=== PATIENT | female | born 1960 ===

== ENCOUNTER 2023-08-24 11:58 | Outpatient (CLI) | payer OTHER, SELFPAY ==
[2023-08-24 12:59] LABS: Basophils Percent Auto 0.2 % (0.2-1.2); Eosinophils Absolute Auto 0.2 K/mm3 (0-0.3); Eosinophils Percent Auto 5.7 % (0-4.4); Hematocrit 41.8 % (37.0-47.0); Hemoglobin 13.4 g/dL (12.0-15.0); Lymphocytes Percent Auto 44.8 % (18.3-44.2); Mean Corpuscular HGB Conc 32.1 g/dl (32-36); Mean Corpuscular Hemoglobin 29.5 pg (26-34); Mean Corpuscular Volume 91.9 fl (80-100); Mean Platelet Volume 10.1 fl (7.4-10.4); Monocytes Absolute Auto 0.4 K/mm3 (0.1-0.6); Monocytes Percent Auto 9.4 % (2.6-8.5); Neutrophils Absolute Auto 1.7 K/mm3 (1.3-6.7); Neutrophils Percent Auto 39.9 % (45.5-73.1); Platelet Count Result 222 k/mm3 (150-375); Red Blood Count 4.55 M/mm3 (4.2-5.4); Red Cell Distribution Width 12.7 % (11.5-14.5); White Blood Count 4.2 K/mm3 (4.5-10.0)
[2023-08-24 13:13] LABS: Alanine Aminotransferase 34 U/L (6-35); Alkaline Phosphatase 96 U/L (38-126); Anion Gap 6 mmol/L (8-16); Aspartate Amino Transferase 43 U/L (14-36); Bilirubin,Total 0.7 mg/dL (0.2-1.3); Blood Urea Nitrogen 11 mg/dL (7-17); CRP < 0.5 mg/dL (<1.0); Carbon Dioxide 29 mmol/L (22-30); Chloride 103 mmol/L (98-107); Estimated Glomerular Filt Rate > 60; Glucose 94 mg/dL (65-110); Potassium 4.3 mmol/L (3.4-5.0); Sodium 138 mmol/L (137-145)
[2023-08-24 13:18] LABS: Appearance Urine Clear (Clear); Bacteria Urine 1+ /hpf; Bilirubin Urine Negative (Negative); Blood Urine Negative (Negative); Color Urine Yellow (Yellow); Glucose Urine UA Negative (Negative); Ketones Urine Negative (Negative); Leukocyte Esterase Ur 3+ LEU/UL (Negative); Nitrate Urine Negative (Negative); Non Pathogenic Casts 0-2; Protein Urine Negative (Negative); RBC Urine 0-2 /hpf (0-2); Specific Grav Ur 1.018 (1.001-1.035); Squamous Epithelial Cell Urine Few /hpf (Few); Urobilinogen Urine 0.2 mg/dL (<2.0); WBC Urine 21-50 /hpf; pH Urine 5.5 (5.0-9.0)
[2023-08-24 13:21] LABS: Complement C3 122 mg/dL (88-165); Rheumatoid Factor 93.9 IU/ML (<12)
[2023-08-24 13:50] LABS: Add Urine Microscopic? YES
[2023-08-24 13:54] LABS: Hepatitis B Surface Antigen Negative (Negative)
[2023-08-24 14:14] LABS: Hepatitis B Surface Anti Res Positive; Hepatitis C Virus Antibody Negative (Negative)
[2023-08-24 14:31] LABS: Erythrocyte Sedimentation Rate 33 mm/hr (0-20)
[2023-08-26 21:42] LABS: Anti Cyclic Citrullinated Pept >250 Units (<20)
[2023-08-27 08:52] LABS: SM Antibody <1.0; SM/RNP Antibody <1.0
[2023-08-27 08:52] LABS: SS-A <1.0; SS-B <1.0
[2023-08-28 22:49] LABS: Lupus dRVVT Screen 35 sec (<=45); PTT-LA Screen 34 sec (<=40)
[2023-08-29 14:32] LABS: Anti Cardio Antibody IgM <2.0 MPL-U/mL (<20.0); Anti Cardiolipin Antibody IgA <2.0 APL-U/mL (<20.0); Anti Cardiolipin Antibody IgG <2.0 GPL-U/mL (<20.0)
== END 2023-08-24 11:59 | disposition home or self-care (01) ==
LOC: ANHLAB 12:00
PROVIDERS: PCP Nurse Practitioner Family; Visit Provider Internal Medicine
DX: R70.0 Elevated erythrocyte sedimentation rate (principal); M05.79 Rheumatoid arthritis with rheumatoid factor of multiple sites without organ or systems involvement; M15.9 Polyosteoarthritis, unspecified; Z71.89 Other specified counseling; Z79.899 Other long term (current) drug therapy
CPT/HCPCS: 36415; 80053; 81001; 85025; 85613; 85652; 85730; 86038; 86140; 86146; 86147; 86160; 86200; 86225; 86235; 86430; 86706; 86803; 87086; 87088; 87340

== ENCOUNTER 2024-01-13 13:33 | Outpatient (CLI) | payer OTHER, SELFPAY ==
[2024-01-13 14:10] LABS: Appearance Urine Clear (Clear); Bacteria Urine None Seen /hpf; Bilirubin Urine Negative (Negative); Blood Urine Negative (Negative); Color Urine Yellow (Yellow); Glucose Urine UA Negative (Negative); Ketones Urine Negative (Negative); Leukocyte Esterase Ur 3+ LEU/UL (Negative); Nitrate Urine Negative (Negative); Non Pathogenic Casts 0-2; Protein Urine Negative (Negative); RBC Urine 0-2 /hpf (0-2); Squamous Epithelial Cell Urine Few /hpf (Few)
[2024-01-13 14:12] LABS: Add Urine Microscopic? YES
[2024-01-13 14:27] LABS: Hematocrit 39.5 % (37.0-47.0); Hemoglobin 12.7 g/dL (12.0-15.0); Mean Corpuscular HGB Conc 32.2 g/dl (32-36); Mean Corpuscular Hemoglobin 28.9 pg (26-34); Mean Platelet Volume 10.4 fl (7.4-10.4); Platelet Count Result 203 k/mm3 (150-375); Red Blood Count 4.39 M/mm3 (4.2-5.4); Red Cell Distribution Width 12.7 % (11.5-14.5); White Blood Count 5.7 K/mm3 (4.5-10.0)
[2024-01-13 14:40] LABS: Alanine Aminotransferase 27 U/L (6-35); Albumin Level 3.7 g/dL (3.5-5.1); Alkaline Phosphatase 98 U/L (38-126); Anion Gap 4 mmol/L (8-16); Aspartate Amino Transferase 40 U/L (14-36); Bilirubin,Total 0.7 mg/dL (0.2-1.3); Blood Urea Nitrogen 13 mg/dL (7-17); CRP 1.5 mg/dL (<1.0); Calcium 8.9 mg/dL (8.4-10.2); Carbon Dioxide 30 mmol/L (22-30); Chloride 104 mmol/L (98-107); Estimated Glomerular Filt Rate > 60; Glucose 106 mg/dL (65-110); Potassium 3.8 mmol/L (3.4-5.0); Sodium 138 mmol/L (137-145)
[2024-01-13 15:36] LABS: Erythrocyte Sedimentation Rate 43 mm/hr (0-20)
== END 2024-01-13 13:34 | disposition home or self-care (01) ==
LOC: ANHLAB 13:38
PROVIDERS: Visit Provider Internal Medicine
DX: M19.90 Unspecified osteoarthritis, unspecified site (principal); M05.79 Rheumatoid arthritis with rheumatoid factor of multiple sites without organ or systems involvement; R70.0 Elevated erythrocyte sedimentation rate
CPT/HCPCS: 36415; 80053; 81001; 85027; 85652; 86140; 87086